=== PATIENT | male | born 1950 | race Caucasian/White ===

== ENCOUNTER 2017-02-24 18:26 | Observation (INO) | payer OTHER ==
[~2017-02-24] VITALS: Ht 177.8 cm; Wt 99.0 kg
[~2017-02-24 18:26] MED LIST: CHILD ASPIRIN81 M1 PO; CRESTOR20 MG PO; D3 + K2 DOTS 11 EACH PO; METFORMIN HCL500 MG PO; PREDNISONE5 MG PO
[2017-02-24 19:20] LABS: HEMATOCRIT 44.2 % (38.0-50.0); MCH 32.1 PG (29.0-34.0); MCHC 33.3 G/DL (30.0-36.0); MCV 96.5 FL (86-99); MEAN PLAT.VOLUME 10.4 uM^3 (9.0-12.4); PLATELET COUNT 230 K/uL (156-360); RBC DIS.WIDTH-CV 12.6 % (11.8-14.6); RBC DIS.WIDTH-SD 44.8 % (39-53); RED BLOOD COUNT 4.58 M/uL (4.00-5.50); WHITE BLOOD COUNT 7.4 K/uL (4.1-10.2)
[2017-02-24 19:33] LABS: CHLORIDE 109 mEq/L (99-109); SODIUM 143 mEq/L (136-147)
[2017-02-24 19:34] LABS: GLUCOSE 101 mg/dL (70-99)
[2017-02-24 19:36] LABS: ANION GAP 8 MEQ/L (2-14)
[2017-02-24 19:38] LABS: GFR ESTIMATE (CALCULATED) > 59 mL/min/
[2017-02-24 19:39] LABS: UREA NITROGEN (BUN) 18 mg/dL (9-23)
[2017-02-24 19:45] LABS: TROP-I INTERPRETATION NEGATIVE; TROPONIN-I < 0.01 ng/mL (0.0-0.30)
[2017-02-24] MEDS ORDERED: METFORMIN HCL1000 MG PO (21:32)
[2017-02-24] MEDS ORDERED: SIMVASTATIN40 MG PO (21:34)
[2017-02-24] MEDS ORDERED: VITAMIN D32000 UNI1 PO (21:34)
[2017-02-24] MEDS ORDERED: LISINOPRIL20 MG PO (21:34)
[2017-02-25 01:08] VITALS: BP 152/84
[2017-02-25 02:09] LABS: TROP-I INTERPRETATION NEGATIVE; TROPONIN-I < 0.01 ng/mL (0.0-0.30)
[2017-02-25 04:02] VITALS: BP 125/74
[2017-02-25 07:57] VITALS: BP 121/81
[2017-02-25 08:36] LABS: TROP-I INTERPRETATION NEGATIVE; TROPONIN-I < 0.01 ng/mL (0.0-0.30)
[2017-02-25 08:54] LABS: POINT-OF-CARE METER ID UU14162513
[2017-02-25 11:12] VITALS: BP 132/70
[2017-02-25 12:29] LABS: POINT-OF-CARE METER ID UU13113831
[2017-02-25 15:29] VITALS: BP 117/69
[2017-02-25 17:00] LABS: POINT-OF-CARE METER ID UU14162513
== END 2017-02-25 17:45 | disposition home or self-care (01) ==
LOC: EME 18:26 → EDOF 23:08 → 5WEST 23:08
PROVIDERS: Hospitalist
DX: M50.123 Cervical disc disorder at C6-C7 level with radiculopathy (principal); M47.22 Other spondylosis with radiculopathy, cervical region; R07.89 Other chest pain; E11.9 Type 2 diabetes mellitus without complications; I10 Essential (primary) hypertension; E78.5 Hyperlipidemia, unspecified; D86.9 Sarcoidosis, unspecified; I71.2 Thoracic aortic aneurysm, without rupture; Z79.52 Long term (current) use of systemic steroids
CPT/HCPCS: 71020; 71550; 72125; 72128; 73030; 80048; 82948; 84484; 85027; 93005; 99281; 99285; G0378; J7512